=== PATIENT | male | born 1990 | race Caucasian/White ===

== ENCOUNTER 2016-04-19 12:33 | Emergency (ER) ==
[2016-04-19] MEDS ORDERED: ROCEPHIN IM ONE (12:52)
[2016-04-19] MEDS ORDERED: BOOSTRIX VACCINE IM ONE (12:52)
[2016-04-19] MEDS ORDERED: XYLOCAINE-MPF 1% INJ ONE (12:52)
--- NOTE | 2016-04-19 12:58 | PROVIDER DOCUMENTATION ---
HPI-Work Related Injury - General Source: patient - History of Present Illness-Work Injury Location of Pain/Injury: reports: lower extremity (right foot) Pain Radiation: reports: no radiation Quality of Pain: reports: dull Severity: reports: mild Onset/Duration: reports: abrupt, just prior to arrival Timing: reports: still present, gone now Modifying Factors: improves with: nothing Associated Symptoms: denies: chest pain, fever/chills, nausea Similar Symptoms Previously?: No Recently seen or treated by another doctor?: No <Willie Rivera - Last Filed: 04/19/16 12:55> <Jen Guy - Last Filed: 04/19/16 13:14> - General Chief Complaint: Work Related Injury Stated Complaint: WORK INJURY Time Seen by Provider: 04/19/16 12:48 Allergies/Adverse Reactions: Patient Allergies Allergy/AdvReac Type Severity Reaction Status Date / Time Penicillins Allergy ANAPHYLAXIS Verified 09/10/14 00:01 - History of Present Illness-Work Injury Nature of PresentingProblem: patient is a 25 y/o M that presents to the ER with work related injury. pt was at work when he accidentally stepped on a nail. patient has a boot and sock on but nail went through boot. He was able to get nail out, needs tdap (Willie Rivera) Review of Systems - Adult - REVIEW OF SYSTEMS - ADULT Constitutional: denies: chills, fever Eyes: reports: no symptoms reported Ears, Nose, Mouth & Throat: denies: ear pain, sinus problem, throat pain, throat swelling Cardiovascular: denies: chest pain, palpitations, syncope Respiratory: denies: cough, shortness of breath, wheezing Gastrointestinal: denies: abdominal pain, diarrhea, nausea, vomiting Genitourinary: reports: no symptoms reported Musculoskeletal: reports: bone pain. denies: joint pain, neck pain Integumentary: reports: other (wounds). denies: itching, rash Neurological: reports: no symptoms reported Psychiatric: reports: no symptoms reported Endocrine: reports: no symptoms reported Hematologic/Lymphatic: reports: no symptoms reported Allergic/Immunologic: reports: no symptoms reported All Other Systems: Reviewed and Negative <iWllie Rivera - Last Filed: 04/19/16 12:55> Past History - Adult - PAST MEDICAL HISTORY-ADULT Review of Records: reports: Old Records Reviewed, Nursing Assessment Review, Medications Reviewed, Social history reviewed & non-contributory. Major Childhood Illnesses: reports: denies history Cardiovascular: reports: denies history Respiratory: reports: denies history Gastrointestinal: reports: denies history Obstetrical/Gynecological: reports: denies history Genitourinary: reports: denies history Musculoskeletal: reports: denies history Neurological: reports: denies history Psychiatric: reports: other (adhd,anger agression) Endocrine/Immune: reports: denies history Other Conditions: reports: denies history - PRIOR SURGERIES/PROCEDURES Surgical/Procedure History: reports: hernia repair - IMMUNIZATION STATUS Childhood Immunizations: See Nurse Assessment Flu Vaccine: See Nurse Assessment - FAMILY HISTORY Family History: reviewed, not pertinent <Willie Rivera - Last Filed: 04/19/16 12:55> Physical Exam-Injury Related - Physical Exam-Injury Related Initial Vital Signs Reviewed: Yes General Appearance: alert, no apparent distress Eyes: PERRL/EOMI, pink conjunctivae Head, Ears, Nose, Mouth & Throat: normocephalic/atraumatic, moist mucous membranes, normal ENT inspection Neck: full range of motion, normal inspection Respiratory: lungs clear, normal breath sounds, no respiratory distress, no accessory muscle use Cardiovascular: normal peripheral pulses, regular rate, rhythm Abdominal Exam: normal bowel sounds, non tender, soft Extremity: no calf tenderness, normal capillary refill, pelvis stable Integumentary: warm/dry, puncture wound(s) (right foot laterally) Neurologic: grossly normal, no motor/sensory deficits Psych/Mental Status: normal mood/affect, normal thought content, normal thought process, oriented x 3 - Glascow Coma Score Best Eye Response ([place]): (4) open spontaneously Best Verbal Response ([place]): (5) oriented Best Motor Response ([place]): (6) obeys commands [place] Total: 15 <Willei Rivera - Last Filed: 04/19/16 12:55> Progress <Willie Rivera - Last Filed: 04/19/16 12:55> - XRAY 1 XRAY: Left XRAY Study: Foot Impression: Normal (NAD per Dr. Castaneda) <Jen Guy - Last Filed: 04/19/16 13:14> - PLAN OF CARE/RESULTS Progress/Plan/Lab Results: Vital Signs Temp Pulse Resp BP Pulse Ox 04/19/16 12:40 98 F 18 L 18 119/73 99 Penicillins Allergy (Verified 09/10/14 00:01) ANAPHYLAXIS No Home Medications 04/19/16 Orders Category Date Time Status FOOT COMPLETE RIGHT [RAD] Stat Exams 04/19/16 12:52 Taken CefTRIAXONE [Rocephin] Med 04/19/16 12:52 Discontinued 1 gm IM NOW ONE Diph,Pertuss(Acell),Tet Vac/Pf [Boostrix Vaccine] Med 04/19/16 12:52 Discontinued 0.5 ml IM .ONCE ONE Lidocaine 1% Pf [Xylocaine-Mpf 1%] Med 04/19/16 12:52 Discontinued 5 ml INJ NOW ONE (Jen Guy) Departure <Willie Rivera - Last Filed: 04/19/16 12:55> - Departure Time of Disposition Order: 13:13 Certified Medical Emergency: Emergent <Jen Guy - Last Filed: 04/19/16 13:14> - Departure DIAGNOSIS: Puncture wound Disposition: HOME 01 Condition: Stable Additional Instructions: [place] [facility] [place] Up Instructions: You have been treated by a care provider in the Emergency Department. These instructions are being provided to you so you can have an understanding of how to care for yourself upon discharge. Upon discharge from the Emergency Department, you are responsible for making arrangements for follow-up care by a physician of your choice. Take all prescribed medications as directed. Return to the Emergency Department immediately for any new or worsening symptoms. You may call the Physician Referral phone number at [phone] to obtain a list of Physicians who are taking new patients. Prescriptions: Sulfamethoxazole/Trimethoprim [Bactrim Ds Tablet] 1 each PO BID #10 tablet Attestation - Scribe Verification/Attestation Scribe:: Willie Rivera Acting as Scribe for:: Jen Guy Scribe documention review:: This chart was documented by a scribe and accurately reflects the service the provider performed and the decisions made by the provider. - Physician/ Mid-level Attestation Patient care was provided by Mid-level provider (STOCK TRACER/PA):: Yes Mid-level provider:: Jen Guy Mid-level documentation review:: The Mid-level provider documentation, treatment plan and medical decision making was reviewed by the physician who agrees with all treatment and medical decision making by the MLP. <Willie Rivera - Last Filed: 04/19/16 12:55> Physician Attestation
[2016-04-19] MEDS ORDERED: ULTRAM PO ONE (13:46)
--- NOTE | 2016-04-19 14:10 | Diag Imaging Result Document ---
PROCEDURE NAME: FOOT COMPLETE RIGHT - 04/19/2016 RIGHT FOOT, THREE VIEWS: FINDINGS: There is no evidence of fracture or dislocation. No other definite bony abnormalities are present. IMPRESSION: No acute disease.
[2016-04-19 14:14] VITALS: BP 121/79
== END 2016-04-19 14:13 | disposition home or self-care (01) ==
LOC: P.ED 12:33
DX: S91.331A Puncture wound without foreign body, right foot, initial encounter (principal); M89.8X7 Other specified disorders of bone, ankle and foot; Z23 Encounter for immunization; W45.0XXA Nail entering through skin, initial encounter
CPT/HCPCS: 90471; 90715; 96372; J0696